=== PATIENT | male | born 1960 | race Caucasian/White ===

== ENCOUNTER 2020-08-02 15:43 | Emergency (ER) | payer MEDICAID, OTHER ==
[~2020-08-02] VITALS: Ht 190.5 cm; Wt 95.0 kg
[2020-08-02] MEDS ORDERED: HYDROcodone/APAP 5/325MG 1 TAB TABLET PO ONE (16:45)
--- NOTE | 2020-08-02 17:05 | RAD ---
XR RT TOE 2+ VIEWS Clinical Indication: Reason: RIGHT GREAT TOE SWELLING, INJURY / Spl. Instructions: / History: Comparison: None. Findings: There is soft tissue swelling of the great toe. No subcutaneous air is identified. There is moderate bony erosion of the shaft and distal tuft of the great toe distal phalanx. There is no involvement of the base. On lateral view the erosion mostly involves the plantar surface. The mineralization is normal. The bony articulations are maintained. There are surgical clips medial to the ankle. IMPRESSION: There is moderate erosion of the shaft and distal tuft of the great toe distal phalanx suggestive of osteomyelitis. Soft tissue swelling of the great toe. Electronically signed by: Tom Muller MD (08/02/2020 5:02 PM) [id number]
--- NOTE | 2020-08-02 17:14 | PHYS DOC ---
Past History Past Medical History: High Cholesterol, Stroke (NICCI STEVENS APRN) Past Surgical History: Tonsillectomy (NICCI STEVENS APRN) Alcohol Use: None (NICCI STEVENS APRN) General Adult EDM: Chief Complaint: TOE PROBLEM HPI: HPI: Patient is a 60-year-old male presents with right great toe, swelling and pain after getting his sandal caught on a tree. Patient states "my sandal got caught, and when I pulled my foot backwards my toe bent the opposite direction". "I feel like I broke my toe". Patient reports taking ibuprofen with little pain relief. Pain is worse with ambulation. Patient denies fever. Patient has history of CVA, chronic migraine. (NICCI STEVENS APRN) Review of Systems: Review of Systems: Constitutional: Denies fever or chills Eyes: Denies change in visual acuity HENT: Denies nasal congestion or sore throat Respiratory: Denies cough or shortness of breath Cardiovascular: Denies chest pain or edema GI: Denies abdominal pain, nausea, vomiting, bloody stools or diarrhea : Denies dysuria Musculoskeletal: Denies back pain or joint pain Integument: Swelling and bruising to right great big toe Neurologic: Reports chronic headache, denies focal weakness or sensory changes Endocrine: Denies polyuria or polydipsia Lymphatic: Denies swollen glands Psychiatric: Denies depression or anxiety (NICCI STEVENS APRN) Current Medications: Current Meds: Current Medications Medications (Trade) Dose Ordered Sig/Erendira Start Time Stop Time Status Last Admin Dose Admin Acetaminophen/ Hydrocodone Bitart (Lortab 5/325) 1 tab 1X ONCE 08/02/20 16:45 08/02/20 16:46 DC 08/02/20 16:54 1 TAB (NICCI STEVENS APRN) Allergies: Allergies: Allergies Coded Allergies Type Severity Reaction Last Updated Verified No Known Drug Allergies 08/02/20 No (NICCI STEVENS APRN) Physical Exam: PE: Constitutional: Well developed, well nourished, no acute distress, non-toxic appearance. [] HENT: Normocephalic, atraumatic, bilateral external ears normal, oropharynx moist, no oral exudates, nose normal. [] Eyes: PERRLA, EOMI, conjunctiva normal, no discharge. [] Neck: Normal range of motion, no tenderness, supple, no stridor. [] Cardiovascular:Heart rate regular rhythm, no murmur [] Lungs & Thorax: Bilateral breath sounds clear to auscultation [] Abdomen: Bowel sounds normal, soft, no tenderness, no masses, no pulsatile masses. [] Skin: Right great big toe, bruising and swelling Back: No tenderness, no CVA tenderness. [] Extremities: Right great toe, pain, swelling Neurologic: Alert and oriented X 3, normal motor function, normal sensory function, no focal deficits noted. [] Psychologic: Affect normal, judgement normal, mood normal. [] (NICCI STEVENS APRN) Current Patient Data: Vital Signs: Vital Signs Date Time Temp Pulse Resp B/P (MAP) Pulse Ox O2 Delivery O2 Flow Rate FiO2 08/02/20 16:54 16 97 08/02/20 15:52 98.3 88 179/103 (128) Room Air (NICCI STEVENS APRN) EKG: EKG: [] (NICCI STEVNES APRN) Radiology/Procedures: Radiology/Procedures: [] XR RT TOE 2+ VIEWS Clinical Indication: Reason: RIGHT GREAT TOE SWELLING, INJURY / Spl. Instructions: / History: Comparison: None. Findings: There is soft tissue swelling of the great toe. No subcutaneous air is identified. There is moderate bony erosion of the shaft and distal tuft of the great toe distal phalanx. There is no involvement of the base. On lateral view the erosion mostly involves the plantar surface. The mineralization is normal. The bony articulations are maintained. There are surgical clips medial to the ankle. IMPRESSION: There is moderate erosion of the shaft and distal tuft of the great toe distal phalanx suggestive of osteomyelitis. Soft tissue swelling of the great toe. Electronically signed by: Tom Muller MD (08/02/2020 5:02 PM) [id number] (NICCI STEVENS APRN) Heart Score: C/O Chest Pain: No Risk Factors: Risk Factors: DM, Current or recent (<one month) smoker, HTN, HLP, family history of CAD, obesity. Risk Scores: Score 0 - 3: 2.5% MACE over next 6 weeks - Discharge Home Score 4 - 6: 20.3% MACE over next 6 weeks - Admit for Clinical Observation Score 7 - 10: 72.7% MACE over next 6 weeks - Early Invasive Strategies (NICCI STEVENS APRN) Course & Med Decision Making: Course & Med Decision Making Pertinent Labs and Imaging studies reviewed. (See chart for details) [] 60-year-old male presents with right, great big toe swelling, erythema. Patient reports 2 weeks ago he was wearing sandals when his sandal got caught on a tree. Patient reports that a tree went up underneath his nail bed and bent his toe the opposite direction. Patient is afebrile. Hemodynamically stable. Patient reports he noticed the last couple of days symptoms getting worse. X- ray of right toe ordered to rule out osteomyelitis. X-ray of right toe shows moderate erosion of the shaft and distal tuft of the great toe distal phalanx suggestive of osteomyelitis and soft tissue swelling of the great toe. WBCs 11.5. All other labs are unremarkable. Lactic acid and also blood cultures ordered.Rocephin and vancomycin started for infection. Normal saline bolus given for hydration. Lactic acid had not resulted at the time of transferring patient care to Dr. Cabrera. Consulted , who will admit patient to [facility] for further evaluation and management. Discussed admission plan with patient, who agrees with plan. Patient will be admitted to [facility] for osteomyelitis. Transfer patient care to Dr. Cabrera at 194. (NICCI STEVENS APRN) Course & Med Decision Making Lactic acid 1.9. No change in plan. (DEEPALI CABRERA DO) Dragon Disclaimer: Dragon Disclaimer: This electronic medical record was generated, in whole or in part, using a voice recognition dictation system. (NICCI STEVENS APRN) Attending Co-Sign The patient was seen and interviewed as well as examined at the bedside. The chart was reviewed. The case was discussed. Agree with the plan of care. (DEEPALI CABRERA DO) Departure Departure: Impression: Primary Impression: Osteomyelitis Qualified Codes: M86.8X7 - Other osteomyelitis, ankle and foot Disposition: 02 SHORT TERM HOSPITAL Condition: STABLE Referrals: SHILPA GARDUNO MD (PCP) NICCI STEVENS APRN Aug 02, 2020 17:14 DEEPALI CABRERA DO Aug 03, 2020 00:24
[2020-08-02 17:21] LABS: BASO # 0.1 x10^3/uL (0.0-0.2); BASO % 1 % (0-3); EOS # 0.2 x10^3/uL (0.0-0.7); EOS % 2 % (0-3); HEMATOCRIT 50.7 % (39.0-53.0); HEMOGLOBIN 16.8 g/dL (13.0-17.5); LYMPH # 2.1 x10^3/uL (1.0-4.8); LYMPH % 18 % (24-48); MEAN CORPUSCULAR HEMOGLOBIN 30 pg (25-35); MEAN CORPUSCULAR HGB CONC 33 g/dL (31-37); MEAN CORPUSCULAR VOLUME 92 fL (79-100); MONO # 0.8 x10^3/uL (0.0-1.1); MONO % 7 % (0-9); NEUT # 8.3 x10^3uL (1.8-7.7); NEUT % 72 % (31-73); PLATELET COUNT 237 x10^3/uL (140-400); RED BLOOD COUNT 5.54 x10^6/uL (4.30-5.70); RED CELL DISTRIBUTION WIDTH 14.6 % (11.5-14.5); WHITE BLOOD COUNT 11.5 x10^3/uL (4.0-11.0)
[2020-08-02 17:37] VITALS: BP 159/61
[2020-08-02] MEDS ORDERED: ONDANSETRON PF 4 MG/2 ML VIAL. IVP ONE (18:15)
[2020-08-02] MEDS ORDERED: PIPERACILLIN/TAZOBACTAM 3.375 GM in IV NORMAL SALINE 50ML 50 ML IV ONE (18:15)
[2020-08-02] MEDS ORDERED: MORPHINE SULFATE 4 MG/ML DISP.SYRIN. IV PRN (18:15)
[2020-08-02] MEDS ORDERED: IV NORMAL SALINE 1,000ML 1,000 ML IV ONE (18:15)
[2020-08-02] MEDS ORDERED: PIPERACILLIN/TAZOBACTAM 3.375 GM VIAL IV ONE (18:38)
[2020-08-02] MEDS ORDERED: IV NORMAL SALINE 50ML 50 ML ONE (18:38)
[2020-08-02 18:51] LABS: CALCIUM 9.2 mg/dL (8.5-10.1); GFR 76.5; POTASSIUM 3.9 mmol/L (3.5-5.1)
[2020-08-02 18:57] LABS: ALBUMIN 3.8 g/dL (3.4-5.0); TOTAL BILIRUBIN 0.4 mg/dL (0.2-1.0); TOTAL PROTEIN 7.8 g/dL (6.4-8.2)
[2020-08-02] MEDS ORDERED: VANCOMYCIN 2 GM in IV NORMAL SALINE 500ML 500 ML IV ONE (19:00)
[2020-08-02] MEDS ORDERED: IV NORMAL SALINE 500ML 500 ML ONE (19:22)
[2020-08-02] MEDS ORDERED: VANCOMYCIN 1 GM VIAL. ONE (19:22)
== END 2020-08-02 20:48 | disposition short-term general hospital (02) ==
LOC: ER 15:43
DX: S90.111A Contusion of right great toe without damage to nail, initial encounter (principal); M86.8X7 Other osteomyelitis, ankle and foot; W23.0XXA Caught, crushed, jammed, or pinched between moving objects, initial encounter; Y93.89 Activity, other specified; Y92.89 Other specified places as the place of occurrence of the external cause; Y99.8 Other external cause status
CPT/HCPCS: 36415; 73660; 80053; 83605; 85025; 87040; 96365; 96367; 96375; 99285; J2270; J2405; J2543; J3370; J7030; J7040